=== PATIENT | female | born 1965 | race Caucasian/White ===

== ENCOUNTER → 2021-05-01 | Day surgery (SDC) | payer MEDICAID, SELFPAY ==
[~2021-05-01] VITALS: Ht 165.1 cm; Wt 74.8 kg
[~2021-05-01] MED LIST: DIPHENHYDRAMINE INJ 50 MG/ML VIAL ONE; MIDAZOLAM HCL 5 MG/5 ML VIAL ONE
[2021-05-01 14:45] VITALS: BP_SYST 107
== END | disposition home or self-care (01) ==
LOC: SDS 09:22
PROVIDERS: ATTEND Internal Medicine
DX: M51.16 Intervertebral disc disorders with radiculopathy, lumbar region (principal); M54.2 Cervicalgia; R51.9 Headache, unspecified; M79.10 Myalgia, unspecified site; G89.4 Chronic pain syndrome; Z79.899 Other long term (current) drug therapy
CPT/HCPCS: 36415; 62323; 87426; J1200; J2250; 76000